=== PATIENT | female | born 1970 | race Caucasian/White ===

== ENCOUNTER → 2016-06-09 | Outpatient (CLI) | payer OTHER ==
[~2016-06-09] MED LIST: ALBUAER19 INH; CALC-20 PO; FLUT0.0529 NAE; GADAVIST IV PRN; HYDR12.56 PO; MONT1TAB3 PO; MULTTAB58 PO
--- NOTE | 2016-06-09 15:30 | DIAGNOSTIC IMAGING REPORT ---
Brain MRI WITH AND WITHOUT CONTRAST HISTORY: Worsening headaches. Recent head trauma. Headache, speech DISTURBANCE,RECENT INJ,DIZZINESS TECHNIQUE: Multiplanar multisequence MRI of the brain was performed both before and after the intravenous administration of contrast. COMPARISON STUDY: None. FINDINGS: There are no areas of restricted diffusion to suggest acute infarction. The midline structures are intact. There is a 1.4 cm retention cyst within the floor the left maxillary sinus. No fluid levels within the paranasal sinuses. Tiny linear focus of enhancement within the left frontal lobe is consistent with a small developmental venous anomaly. This is considered to be a normal variant. The mastoid air cells are clear. The ventricles and sulci are within normal limits for age. There is no mass, hematoma, midline shift. The major vascular flow-voids at the skull base are well maintained. IMPRESSION: No acute intracranial abnormality. Electronically signed by: Ryan Dodd M.D. 06/09/2016 3:29 PM Dictated Date/Time: 06/09/2016 3:21 PM
== END | disposition home or self-care (01) ==
LOC: C.MRI 14:12
PROVIDERS: ATTEND Nurse Practitioner Family
DX: R51 Headache (principal); R47.89 Other speech disturbances; S09.90XA Unspecified injury of head, initial encounter; R42 Dizziness and giddiness; X58.XXXA Exposure to other specified factors, initial encounter

== ENCOUNTER → 2016-08-16 | Outpatient (CLI) | payer OTHER ==
[~2016-08-16] MED LIST changes: -GADAVIST IV PRN
== END | disposition home or self-care (01) ==
LOC: C.PAPS 14:03
PROVIDERS: ATTEND Obstetrics & Gynecology
DX: Z01.419 Encounter for gynecological examination (general) (routine) without abnormal findings (principal)

== ENCOUNTER → 2016-12-30 | Outpatient (CLI) | payer OTHER ==
[2016-12-30 10:14] LABS: CHOLESTEROL/HDL RATIO 2.9
== END | disposition home or self-care (01) ==
LOC: C.LAB1850 08:35
PROVIDERS: ATTEND Obstetrics & Gynecology
DX: Z00.00 Encounter for general adult medical examination without abnormal findings (principal)

== ENCOUNTER → 2017-04-18 | Outpatient (CLI) | payer OTHER ==
--- NOTE | 2017-04-19 07:36 | MAMMOGRAPHY REPORT ---
BILATERAL DIGITAL SCREENING MAMMOGRAM TOMOSYNTHESIS WITH CAD: 04/18/2017 CLINICAL HISTORY: Routine screening. Patient has no complaints. TECHNIQUE: Breast tomosynthesis in addition to standard 2D mammography was performed. Current study was also evaluated with a Computer Aided Detection (CAD) system. COMPARISON: Comparison is made to exams dated: 01/27/2015 mammogram, 11/12/2013 mammogram, 10/18/2012 jesse mogram, 10/16/2012 mammogram, 08/04/2011 mammogram, and 07/08/2010 mammogram - [facility] er. BREAST COMPOSITION: The tissue of both breasts is heterogeneously dense, which may obscure small mas ses. FINDINGS: The parenchymal pattern is unchanged. No developing mass, architectural distortion or clus ter of suspicious microcalcifications is seen in either breast. IMPRESSION: ACR BI-RADS CATEGORY 2: BENIGN There is no mammographic evidence of malignancy. A 1 year screening mammogram is recommended. The pa tient will receive written notification of the results. Approximately 10% of breast cancers are not detected with mammography. A negative mammographic report should not delay biopsy if a clinically suggestive mass is present. Tressa Carter M.D. ay/:04/18/2017 16:45:49 Peripatologist: Blessing IBARRA(R)(Masood), [facility] letter sent: Normal 1/2 BI-RADS Code: ACR BI-RADS Category 2: Benign
== END | disposition home or self-care (01) ==
LOC: C.MAMM 11:07
PROVIDERS: ATTEND Obstetrics & Gynecology
DX: Z12.31 Encounter for screening mammogram for malignant neoplasm of breast (principal)

== ENCOUNTER → 2017-08-10 | Outpatient (CLI) | payer OTHER ==
--- NOTE | 2017-08-10 09:42 | DIAGNOSTIC IMAGING REPORT ---
ULTRASOUND SOFT TISSUES NECK CLINICAL HISTORY: Left-sided neck pain and swelling. COMPARISON STUDY: No priors. FINDINGS: Real-time, grayscale, and color flow sonography of the soft tissues of the neck is performed at the indicated site of interest. No mass or fluid collection is identified. There are scattered benign-appearing bilateral cervical lymph nodes which maintain normal fatty broderick. The largest is seen in the left submandibular region and measures 7 mm in short axis. No pathologically enlarged or morphologically abnormal nodes are identified. IMPRESSION: 1. No acute abnormality is identified. 2. There are scattered benign-appearing cervical lymph nodes incidentally noted. Electronically signed by: Arnulfo Maldonado M.D. 08/10/2017 9:41 AM Dictated Date/Time: 08/10/2017 9:39 AM
== END | disposition home or self-care (01) ==
LOC: C.ULTR 09:08
PROVIDERS: ATTEND Family Medicine
DX: M54.2 Cervicalgia (principal)

== ENCOUNTER → 2017-12-29 | Outpatient (CLI) | payer OTHER | END | disposition home or self-care (01) | LOC: C.LAB1850 08:46 | PROVIDERS: ATTEND Obstetrics & Gynecology | DX: Z00.00 Encounter for general adult medical examination without abnormal findings (principal) ==

== ENCOUNTER 2024-12-25 12:09 | Observation (INO) ==
[2024-12-25 12:59] LABS: Appearance Urine Clear (Clear); Glucose Urine UA Negative (Negative)
[2024-12-25 13:02] LABS: Hematocrit (blood only) 42.9 % (37.0-47.0); Hemoglobin 14.6 g/dl (12.0-16.0); Immature Granulocytes # (auto) 0.02 K/uL (0.01-0.20); Immature Granulocytes % (auto) 0.2 %; Mean Corpuscular Hemoglobin 31.1 pg (25.0-34.0); Mean Corpuscular Volume 91.3 fL (80.0-100.0); Platelet Count 262 K/uL (130-400); RDW Standard Deviation 43.8 fL (36.4-46.3); Red Blood Count 4.70 M/uL (4.20-5.40); White Blood Count 9.18 K/ul (4.8-10.8)
--- NOTE | 2024-12-25 13:17 | XRay Report ---
XR chest 1V portable CLINICAL HISTORY: chest pain COMPARISON STUDY: 12/19/2014 FINDINGS: Heart size and pulmonary vasculature are normal. No consolidation or pleural effusion. No p neumothorax. IMPRESSION: No acute findings. ACT 112: Negative or not required by law. Electronically signed by: Patrick Persaud M.D. 12/25/2024 1:16 PM
[2024-12-25 13:21] LABS: Alanine Aminotransferase 16 U/L (7-52); Albumin Globulin Ratio 1.8 (0.9-2); Alkaline Phosphatase 83 U/L (34-104); Anion Gap 6 (3-11); Bilirubin,Total 0.4 mg/dl (0.2-1.0); Blood Urea Nitrogen 13 mg/dl (6-23); Calcium 9.5 mg/dl (8.6-10.3); Carbon Dioxide 31 mmol/L (21-32); Chloride 106 mmol/L (98-107); Globulin 2.5 gm/dl (2.5-4.0); Glucose 106 mg/dl (70-99(Fasting)); Potassium 3.9 mmol/L (3.5-5.1); Sodium 143 mmol/L (136-145); Total Protein 7.1 gm/dl (6.0-8.3)
--- NOTE | 2024-12-25 13:39 | Emergency Department Note ---
Impression & Plan Blurred vision, bilateral, Hypertension, Aphasia, Memory change ED Provider Note CHIEF COMPLAINT: Visual changes and strokelike symptoms HISTORY OF PRESENTING ILLNESS: Patient is a 54-year-old female presents to the emergency department today for complaints of an episode of blurry vision with some minor memory changes. 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 Her coworkers grew concerned and called EMS and the patient was brought in by ambulance. Since that episode the patient reports her symptoms have resolved. She reports a similar episode about a year ago and the outcome was her blood pressure was elevated and she needed medication adjustment. She denies any falls or injuries to the head. She denies any syncope lightheadedness or dizziness. She does not take any blood thinners. She denies chest pain, sob, breathing difficulties, abdominal pain, headache, fevers/chills, blood in stool or urine, any recent illness, or any recent travel. REVIEW OF SYSTEMS: See HPI for pertinent positives and pertinent negatives. ALLERGIES: See below MEDICATIONS: See below PAST MEDICAL HISTORY: See below PHYSICAL EXAM: VITALS: Vitals are noted on the nurse's note and reviewed by myself. GENERAL: No acute distress, non-diaphoretic. SKIN: Capillary reflex less than 2 seconds. HEAD: No scalp tenderness. No step-offs felt. EYES: Pupils equal round and reactive to light and accommodation. Conjunctivae without injection, sclerae without icterus. Extraocular movements intact without pain. No nystagmus. FACE: No facial bone tenderness. Full range of motion of the jaw without tenderness. No facial droop. MOUTH: Mucous membranes moist. Uvula midline. Airway patent. Tongue does not deviate. NECK: Supple without nuchal rigidity. Cervical spine is nontender. Full range of motion of the neck without tenderness and normal strength. HEART: Regular rate and rhythm without murmurs gallops or rubs. LUNGS: Clear to auscultation bilaterally without wheezes, rales or rhonchi. No retractions or accessory muscle use. No chest wall tenderness. ABDOMEN: Positive bowel sounds x 4. Normal tympanic percussion. Soft, nontender to palpation. No masses or hepatosplenomegaly. No guarding or rebound tenderness. No focal RLQ or LLQ tenderness. MUSCULOSKELETAL: No tenderness of the thoracic or lumbar spine or paraspinal muscles. Strength 5/5 and equal bilaterally in the upper and lower extremities. Peripheral pulses 2+ and equal in the bilateral upper and lower extremities. NEURO: NIH-0 patient was alert and oriented to person place and time. Normal mental status exam. Normal sensation to light and sharp touch. No focal neurological deficits. DIFFERENTIAL DIAGNOSIS: The differential diagnosis includes acute intracranial bleed, meningitis, encephalitis, mass or mass effect, sinusitis, infection, tumor, headache, temporal arteritis and carbon monoxide exposure, and migraine. ED COURSE AND MEDICAL DECISION MAKING: HISTORY FROM INDEPENDENT HISTORIAN: History was provided by the patient. MONITOR: Continuous laboratory monitor: Order was placed for continuous laboratory monitor. Patient was placed on the laboratory monitor and continuous pulse ox. Patient was noted to be in normal sinus rhythm at an initial rate of 78 bpm per my interpretation. EKG: EKG was interpreted by myself as sinus bradycardia with left atrial enlargement and a septal infarct age undetermined at a rate of 55 bpm. INTERPRETATION OF LABS: I interpreted the labs with full lab results as below in the lab section of this note. Laboratory results pertinent to the emergent complaint are discussed in the MDM section below. The patient was advised to follow up with their PCP and/or specialist(s) for further outpatient monitoring and management of any abnormal results. INTERPRETATION OF IMAGING: Imaging studies were interpreted by myself and read by radiology as per the imaging section of this note. The patient was advised to follow up with their PCP and/or specialist(s) for further outpatient management of any non-emergent abnormal findings. CHRONIC MEDICAL/SOCIAL CONDITIONS AFFECTING CARE: No social concerns were identified as barriers to patients care. ESCALATION OF CARE CONSIDERED: I considered admission on this patient due to TIA symptoms and fluctuating blood pressure with hypertension. CONSULTATIONS: I had a meaningful discussion about this patient with Dr. Ramey who agrees with my assessment and the treatment plan. SUMMARY: I examined the patient for complaints of TIA symptoms. A physical exam and history were performed. Nursing notes, EMR, and medication list were personally reviewed. CBC showed no leukocytosis, anemia, thrombocytopenia. CMP showed no emergent findings. Troponin was less than 2.3. EKG did show sinus bradycardia with left atrial enlargement and a septal infarct age undetermined at a rate of 55 bpm. Chest x-ray showed no acute findings. CT of the head and neck showed no acute findings. There is left vertebral artery that is very diminutive noted. The patient was given 324 mg of aspirin. I was made aware by nursing that the patient was having another episode of blurry vision. On arrival to the patient reported the symptoms have already resolved. Her blood pressure was noted to be slightly elevated at that time and that has also resolved. I did speak with Dr. Talley who accepts the patient for admission for further TIA workup. DIAGNOSIS: TIA symptoms, hypertension TREATMENT PLAN/DISCHARGE INSTRUCTIONS: Admit to hospitalist services. Past Med/Surg History Problem List (Updated 12/25/24 @ 15:35 by HILARIO Brown) Memory change (Acute) Aphasia (Acute) Hypertension (Acute) Blurred vision, bilateral (Acute) Postmenopausal bleeding Asthma (Acute) Hypertension (Acute) Asthma exacerbation (Acute) Chest pain (Acute) Surgical History History of wisdom tooth extraction History of varicose vein ligation History of tonsillectomy and adenoidectomy History of cryosurgery Family History Mother Alzheimer disease Father Stroke Hypertension Myocardial infarction Social History Smoking Status: Never smoker Do You Dip or Chew Tobacco: No; Preferred Language: Yakut Feels Safe at Home: Yes Allergies Allergies Allergy/AdvReac Type Severity Reaction Status Date / Time Penicillins Allergy Intermediate itchy rash Verified 02/20/24 09:00 Home Meds Home Medications Medication Instructions Recorded Confirmed albuterol sulfate 90 mcg/actuation 2 puff inhalation QID PRN sob 02/24/20 12/25/24 aerosol inhaler fluticasone propionate 50 0 spray intranasal DIRECTED 02/24/20 12/25/24 mcg/actuation nasal spray,suspension hydrochlorothiazide 12.5 mg tablet 0 mg PO DAILY 02/24/20 12/25/24 montelukast 10 mg tablet 10 mg PO DAILY 02/24/20 12/25/24 calcium carbonate 0 mg PO DAILY 12/25/24 12/25/24 olmesartan 5 mg tablet 5 mg PO DAILY 12/25/24 12/25/24 Results & Data (ED) Vital Signs Vital Signs - 24 hr 12/25/24 12:14 12/25/24 12:48 12/25/24 14:13 Temperature 36.4 C L Temperature Source Oral Pulse Rate 68 78 Pulse Rate [Apical] 87 Respiratory Rate 17 18 Blood Pressure 179/93 H Blood Pressure [Right Arm] 143/83 H Blood Pressure Mean 121 Blood Pressure Mean [Right Arm] 103 Pulse Oximetry 99 98 Oxygen Delivery Method Room Air Sepsis Recent Fever Within 48 Hours No Sepsis New/Unexplained Change in Mental Status N/A Sepsis Action Taken by Nursing No Action Required 12/25/24 14:26 12/25/24 15:00 Temperature Temperature Source Pulse Rate Pulse Rate [Apical] 96 H 88 Respiratory Rate 18 Blood Pressure Blood Pressure [Right Arm] 179/91 H 153/82 H Blood Pressure Mean Blood Pressure Mean [Right Arm] 120 105 Pulse Oximetry 98 Oxygen Delivery Method Sepsis Recent Fever Within 48 Hours Sepsis New/Unexplained Change in Mental Status Sepsis Action Taken by Nursing Laboratory Data 12/25/24 12:44 12/25/24 12:44 Lab Results 12/25/24 12/25/24 12/25/24 Range/Units 12:20 12:39 12:44 WBC 9.18 (4.8-10.8) K/ul RBC 4.70 (4.20-5.40) M/uL Hgb 14.6 (12.0-16.0) g/dl Hct 42.9 (37.0-47.0) % MCV 91.3 (80.0-100.0) fL MCH 31.1 (25.0-34.0) pg MCHC 34.0 (32.0-36.0) g/dL RDW Std Deviation 43.8 (36.4-46.3) fL RDW Coeff of Rod 13.0 (11.5-14.5) % Plt Count 262 (130-400) K/uL MPV 10.0 (9.4-12.4) fL Immature Gran % (Auto) 0.2 % Neut % (Auto) 54.8 % Lymph % (Auto) 34.4 % Kenton % (Auto) 7.7 % Eos % (Auto) 1.9 % Baso % (Auto) 1.0 % Neut # (Auto) 5.03 (1.40-6.50) K/uL Lymph # (Auto) 3.16 (1.20-3.40) K/uL Kenton # (Auto) 0.71 H (0.11-0.59) K/uL Eos # (Auto) 0.17 (0.00-0.50) K/uL Baso # (Auto) 0.09 (0.00-0.20) K/uL Immature Gran # (Auto) 0.02 (0.01-0.20) K/uL Sodium 143 (136-145) mmol/L Potassium 3.9 (3.5-5.1) mmol/L Chloride 106 (98-107) mmol/L Carbon Dioxide 31 (21-32) mmol/L Anion Gap 6 (3-11) BUN 13 (6-23) mg/dl Creatinine 0.78 (0.6-1.2) mg/dl Est Cr Clr Drug Dosing Not Reportable eGFR 89.09 BUN/Creatinine Ratio 16.7 (10-20) Glucose 106 H (70-99(Fasting)) mg/dl POC Glucose 94 (70-99) mg/dl Calcium 9.5 (8.6-10.3) mg/dl Total Bilirubin 0.4 (0.2-1.0) mg/dl AST 17 (13-39) U/L ALT 16 (7-52) U/L Alkaline Phosphatase 83 (34-104) U/L Troponin I High Sens < 2.3 (0-14) pg/ml Total Protein 7.1 (6.0-8.3) gm/dl Albumin 4.6 (3.4-5.0) gm/dl Globulin 2.5 (2.5-4.0) gm/dl Albumin/Globulin Ratio 1.8 (0.9-2) Urine Color Yellow Urine Appearance Clear (Clear) Urine pH 7.5 (4.5-7.5) Ur Specific Sims 1.010 (1.000-1.030) Urine Protein Negative (Negative) Urine Glucose (UA) Negative (Negative) Urine Ketones Negative (Negative) Urine Blood Negative (Negative) Urine Nitrite Negative (Negative) Urine Bilirubin Negative (Negative) Urine Urobilinogen Negative (Negative) Ur Leukocyte Esterase Negative (Negative) Urine Comment Administered Medications Discontinued Medications Aspirin (Aspirin Chew 324 Mg) 324 mg PO NOW STA Stop: 12/25/24 14:59 Last Admin: 12/25/24 15:03 Dose: 324 mg Documented By: LCD Ioversol (Optiray 320 125ml) 118 ml IV ONCE ONE Stop: 12/25/24 14:09 Last Admin: 12/25/24 14:09 Dose: 118 ml Documented By: [facility] [employer] Data Radiologist's Impression: Chest X-Ray 12/25/24 12:46 XR chest 1V portable CLINICAL HISTORY: chest pain COMPARISON STUDY: 12/19/2014 FINDINGS: Heart size and pulmonary vasculature are normal. No consolidation or pleural effusion. No pneumothorax. IMPRESSION: No acute findings. ACT 112: Negative or not required by law. Electronically signed by: Patrick Persaud M.D. 12/25/2024 1:16 PM Head CTA 12/25/24 12:46 CT angio head wo/w CLINICAL HISTORY: TIA s/s COMPARISON STUDY: 05/23/2024 FINDINGS: Noncontrast head CT: No acute cranial hemorrhage seen. No mass effect, midline shift, or hydrocephalus. No skull fracture seen. CTA: The right vertebral artery is dominant and the left vertebral artery is very diminutive beyond PICA, anatomic variant. Distal internal carotid arteries are widely patent. Basilar artery is mildly diminutive but patent. Anterior, middle, and posterior cerebral arteries are patent bilaterally. 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 No intracranial aneurysm seen. Cerebral venous sinuses opacify normally. There is mild mucosal thickening at the right maxillary sinus. Otherwise the visualized paranasal sinuses are clear. IMPRESSION: 1. No acute findings. 2. No significant arterial narrowing or occlusion seen at the brain. ACT 112: Negative or not required by law. Electronically signed by: Patrick Persaud M.D. 12/25/2024 2:20 PM Neck CTA 12/25/24 12:46 CT angio neck with con CLINICAL HISTORY: 54 years-old Female with TIA s/s. Acute stroke like symptoms with TIA COMPARISON STUDY: CTA neck of same day, Brain MR 05/23/2024, thyroid ultrasound 02/13/2024. TECHNIQUE: Following the IV administration of 118 mL of Optiray, CT angiogram of the neck was performed from the aortic arch to the skull base. Images are reviewed in the axial, sagittal, and coronal planes. 3-D MIPS images are created and assessed. IV contrast was administered without complication. All measurements were calculated based on NASCET criteria. A dose lowering technique was utilized adhering to the principles of ALARA. FINDINGS: Three-vessel morphology of the thoracic aortic arch. Patent common and internal carotid arteries. Dominant right vertebral artery. There is a mild stenosis noted within the diminutive left vertebral artery. No aneurysm, dissection, high-grade stenosis or arterial occlusion. Lung apices appear clear. Thyroid nodules measure up to 1.2 cm on the right, similar to prior. Degenerative changes of the cervical spine. IMPRESSION: 1. Unremarkable CTA of the neck. 2. Multinodular thyroid redemonstrated. ACT 112: Negative or not required by law. The above report was generated using voice recognition software. It may contain grammatical, syntax or spelling errors. Electronically signed by: Jose Juan Ellison M.D. 12/25/2024 2:36 PM Discharge Plan Visit Data Chief Complaint: TIA Symptoms Stated Complaint: HYPERTENSION, DIZZY ED Provider: Aung Ramey ED Midlevel Provider: Nisha Edge Discharge Problem: Blurred vision, bilateral, Hypertension, Aphasia, Memory change Patient Disposition: Admitted As Inpatient Condition: Good Discharge Instructions Interventions: ED Discharge Assessment Last Done: 12/25/24 15:30 Discharge Problem: Hypertension Qualifiers: Hypertension type: unspecified Qualified Code(s): I10 - Essential (primary) hypertension
[2024-12-25] MEDS: OPTIRAY 320 125ml IV ONE (14:09)
--- NOTE | 2024-12-25 14:21 | CT Scan Report ---
CT angio head wo/w CLINICAL HISTORY: TIA s/s COMPARISON STUDY: 05/23/2024 FINDINGS: Noncontrast head CT: No acute cranial hemorrhage seen. No mass effect, midline shift, or hydrocephalu s. No skull fracture seen. CTA: The right vertebral artery is dominant and the left vertebral artery is very diminutive beyond P ICA, anatomic variant. Distal internal carotid arteries are widely patent. Basilar artery is mildly d iminutive but patent. Anterior, middle, and posterior cerebral arteries are patent bilaterally. 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 No intracranial aneurysm seen. Cerebral venous sinuses opacify norm ally. There is mild mucosal thickening at the right maxillary sinus. Otherwise the visualized paranas al sinuses are clear. IMPRESSION: 1. No acute findings. 2. No significant arterial narrowing or occlusion seen at the brain. ACT 112: Negative or not required by law. Electronically signed by: Patrick Persaud M.D. 12/25/2024 2:20 PM
--- NOTE | 2024-12-25 14:37 | CT Scan Report ---
CT angio neck with con CLINICAL HISTORY: 54 years-old Female with TIA s/s. Acute stroke like symptoms with TIA COMPARISON STUDY: CTA neck of same day, Brain MR 05/23/2024, thyroid ultrasound 02/13/2024. TECHNIQUE: Following the IV administration of 118 mL of Optiray, CT angiogram of the neck was perform ed from the aortic arch to the skull base. Images are reviewed in the axial, sagittal, and coronal pl anes. 3-D MIPS images are created and assessed. IV contrast was administered without complication. Al l measurements were calculated based on NASCET criteria. A dose lowering technique was utilized adhe ring to the principles of ALARA. FINDINGS: Three-vessel morphology of the thoracic aortic arch. Patent common and internal carotid arteries. Dom inant right vertebral artery. There is a mild stenosis noted within the diminutive left vertebral art erich. No aneurysm, dissection, high-grade stenosis or arterial occlusion. Lung apices appear clear. Thyroid nodules measure up to 1.2 cm on the right, similar to prior. Degene rative changes of the cervical spine. IMPRESSION: 1. Unremarkable CTA of the neck. 2. Multinodular thyroid redemonstrated. ACT 112: Negative or not required by law. The above report was generated using voice recognition software. It may contain grammatical, syntax o r spelling errors. Electronically signed by: Jose Juan Ellison M.D. 12/25/2024 2:36 PM
[2024-12-25] MEDS: ASPIRIN CHEW 324 MG PO STA (15:03)
--- NOTE | 2024-12-25 15:42 | Electrocardiogram Report ---
Test Reason : Blood Pressure : */* mmHG Vent. Rate : 55 BPM Atrial Rate : 55 BPM P-R Int : 154 ms QRS Dur : 80 ms QT Int : 422 ms P-R-T Axes : 61 14 59 degrees QTcB Int : 403 ms Sinus bradycardia Possible Left atrial enlargement Septal infarct , age undetermined Abnormal ECG When compared with ECG of 19-Dec-2014 09:31, Septal infarct is now Present Confirmed by Perry Brown ([id number]) on 12/25/2024 3:42:13 PM Referred By: REFERRED SELF Confirmed By: Perry Brown
[2024-12-25] MEDS ORDERED: ONDANSETRON INJ 2 MG/ML 2 ML VIAL IV PRN (15:57)
[2024-12-25] MEDS ORDERED: ALBUTEROL HFA 8 GM INHALER INH PRN (15:57)
[2024-12-25] MEDS ORDERED: ACETAMINOPHEN 325 MG TAB PO PRN (15:57)
--- NOTE | 2024-12-25 16:35 | History & Physical Report ---
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 Patient is evaluated for TIA with completion of workup after admission #TIA, certainly with symptoms concern for this being a risk of stroke. The patient will have MRI of her brain. She will do echocardiogram to look for paradoxical embolus. She will have a Lyme titer. B12. And a TSH. Will monitor for arrhythmia and telemetry Her recent fasting lipids were performed on the they are in the above note. Reasonable but given symptoms she may benefit from considering a formal statin at this time. #Hypertension typically controlled with olmesartan this will be continued #Asthma this has been quiescent we will continue her typical medications including Singulair with as needed albuterol and fluticasone nasal spray DVT prevention is early ambulation less of a prolonged stay they will consider chemoprophylaxis. Patient is a full code Admission and Anticipated Discharge Date Admission Date: December 25, 2024 History of Present Illness Chief Complaint: 54-year-old female arrives via EMS from work. 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 She has complaints of sudden onset of blurry vision on her peripheral vision and difficulty remembering who her coworkers were. There was a description of dysphagia or aphasia however the patient did not endorse that when eyeing interviewed her. Patient did not eat breakfast her BSG on pres entation was 94 she does not have a history of taking medications to treat glucose abnormalities. She has a history of hypertension on home losartan and some asthma taking inhaled medications. She takes no unusual [id number] medications and is not eating breakfast is not unusual for her. 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 Patient is accompanied at the bedside. But no other new symptoms in the last few days to months Primary Care Provider: Yodit Rosenberg DO Allergies Allergy/AdvReac Type Severity Reaction Status Date / Time Penicillins Allergy Intermediate itchy rash Verified 02/20/24 09:00 Home Medications Medication Instructions Recorded Confirmed Type albuterol sulfate 90 mcg/actuation 2 puff inhalation QID PRN sob 02/24/20 12/25/24 History aerosol inhaler fluticasone propionate 50 0 spray intranasal DIRECTED 02/24/20 12/25/24 History mcg/actuation nasal spray,suspension hydrochlorothiazide 12.5 mg tablet 0 mg PO DAILY 02/24/20 12/25/24 History montelukast 10 mg tablet 10 mg PO DAILY 02/24/20 12/25/24 History calcium carbonate 0 mg PO DAILY 12/25/24 12/25/24 History olmesartan 5 mg tablet 5 mg PO DAILY 12/25/24 12/25/24 History Past Med/Surg History Problem List (Updated 12/25/24 @ 16:31 by Agapito Alexandra MD) TIA (transient ischemic attack) Memory change (Acute) Aphasia (Acute) Hypertension (Acute) Blurred vision, bilateral (Acute) Postmenopausal bleeding Asthma (Acute) Hypertension (Acute) Asthma exacerbation (Acute) Chest pain (Acute) Surgical History History of wisdom tooth extraction History of varicose vein ligation History of tonsillectomy and adenoidectomy History of cryosurgery Family History Mother Alzheimer disease Father Stroke Hypertension Myocardial infarction Social History Smoking Status: Never smoker Do You Dip or Chew Tobacco: No; Preferred Language: Stateless Feels Safe at Home: Yes Review of Systems Review of Systems: Mild distress and fatigue, patient is very anxious about the situation. no headache, peripheral visual changes almost sounding presyncopal in nature since resolved no speech or swallowing issues, patient denies these however was having word finding issues no chest pain, pressure or palpitations no shortness of breath, cough or wheezes no abdominal pain, nausea or vomiting, diarrhea or constipation no dysuria, hematuria or frequency no focal joint pain or swelling no back pain, CVA tenderness or radicular pain no bruising, bleeding or rashes no focal signs of weakness or numbness or altered sensation no complaints of anxiety or depression.. Physical Exam Physical Exam: The patient appeared well nourished and normally developed. Vital signs as documented. Head exam is normocephalic atraumatic Neck is without JVD, thyromegaly, or carotid bruits. Lungs are clear to auscultation, no focal loss of breath sounds Cardiac exam, Rhythm is regular.. No murmurs, rubs or gallops. Abdominal exam reveals normal bowel sounds, soft non tender, no masses Extremities are nonedematous and both pedal pulses are present Neurologic exam is alert and oriented, no focal loss of strength or sensation Skin is without bruises or rashes Psychologically is without concerns for anxiety or depression.. Results & Data Results & Data Vital Signs (Past 12 Hours) Vital Signs Temp Pulse Pulse Resp BP BP Pulse Ox 12/25/24 15:00 88 18 153/82 H 98 12/25/24 14:26 96 H 179/91 H 12/25/24 14:13 87 18 143/83 H 98 12/25/24 12:48 78 12/25/24 12:14 97.5 F L 68 17 179/93 H 99 O2 Del Method 12/25/24 15:00 12/25/24 14:26 12/25/24 14:13 12/25/24 12:48 12/25/24 12:14 Room Air Laboratory Results CBC reviewed chemistry reviewed lipid panel from 12/24/2024 with total cholesterol 214 LDL 133 HDL 62 Discussed case with ER provider EKG shows show sinus bradycardia Diagnostic Findings Reviewed CT head CT brain angiogram and CT neck angiogram Code Status & VTE Plan VTE Prophylaxis Plan VTE Prophylaxis will be ordered: Yes PG Care Time/CCT Total # of Minutes Spent Total Time Spent with Patient: Total time spent is greater than 50% in coordination of care (as documented) at patient's floor/unit and/or counseling patient: Coding Level of Care Code 23179 INT INP/OBS CARE 3/75MIN Diagnoses TIA (transient ischemic attack) G45.9 Hypertension I10 Asthma J45.909
--- NOTE | 2024-12-25 17:08 | Magnetic Resonance Report ---
Clinical History: Headache and visual disturbance Technique: Multiple T1 and T2-weighted magnetic resonance images were obtained of the brain without gadolinium contrast Findings: There is no sign of acute or old infarction with normal-appearing diffusion weighted images. No definite focus of demyelination is seen. No definite mass lesion is seen on this noncontrast study. There is no intracranial hemorrhage or other fluid collection. No midline shift or other form of herniation is seen. There is no hydrocephalus. Normal flow-voids are seen within the arteries of the wilmiy-yr-Swwobj. The orbits and paranasal sinuses appear normal. The mastoid air cells appear clear. Impression: Unremarkable noncontrast MRI of the brain Electronically signed by Inocencio Jameson 12-25-2024 5:07 PM
[2024-12-25] MEDS: LOSARTAN POTASSIUM 25 MG TAB PO STA (23:39)
[2024-12-26 03:22] VITALS: O2SAT 98
[2024-12-26 05:05] LABS: Alanine Aminotransferase 15.0 U/L (7-52); Albumin Globulin Ratio 1.9 (0.9-2); Alkaline Phosphatase 72.0 U/L (34-104); Anion Gap 2.0 (3-11); Bilirubin,Total 0.4 mg/dl (0.2-1.0); Blood Urea Nitrogen 13.0 mg/dl (6-23); Calcium 9.1 mg/dl (8.6-10.3); Carbon Dioxide 28.0 mmol/L (21-32); Chloride 110.0 mmol/L (98-107); Creatinine Clr Calc Pharmacy 68.8 ml/min; Globulin 2.2 gm/dl (2.5-4.0); Glucose 101.0 mg/dl (70-99(Fasting)); Potassium 4.1 mmol/L (3.5-5.1); Sodium 140.0 mmol/L (136-145); Total Protein 6.3 gm/dl (6.0-8.3)
[2024-12-26 05:18] LABS: Thyroid Stimulating Hormone 3.44 uIu/ml (0.300-4.500)
[2024-12-26 07:51] LABS: Hemoglobin A1C 5.8 % (4.5-5.6)
[2024-12-26] MEDS: FLUTICASONE PROPIONATE NA SPR 16 GM BTL SCH (08:21)
[2024-12-26] MEDS: ASPIRIN 81 MG ECTAB PO SCH (08:21)
[2024-12-26] MEDS: MONTELUKAST SODIUM 10 MG TABLET PO SCH (08:22)
[2024-12-26] MEDS ORDERED: LOSARTAN POTASSIUM 25 MG TAB PO SCH ×2 (09:00→21:00)
[2024-12-26] MEDS ORDERED: hydroCHLOROthiazide 25 MG TAB PO SCH (09:00)
[2024-12-26 09:44] VITALS: RESP 15
[2024-12-26 09:46] VITALS: TEMP 98.6
--- NOTE | 2024-12-26 12:21 | XCELERA ---
[id number]
[2024-12-26 13:19] VITALS: BP 141/87; PULSE 89
--- NOTE | 2024-12-26 19:13 | Discharge Summary ---
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 Patient is evaluated for TIA with completion of workup after admission #TIA, stroke is been ruled out TIA versus atypical migraine The patient will have MRI of her brain. She will do echocardiogram to look for paradoxical embolus. Negative Lyme titer and normal TSH, normal B12. Favorable lipid panel on the Echocardiogram negative for PFO we recommended aspirin today and neurology follow-up. #Hypertension typically controlled with olmesartan this will be continued #Asthma this has been quiescent we will continue her typical medications including Singulair with as needed albuterol and fluticasone nasal spray Patient understands that we do not find a direct diagnostic explanation for her symptoms but she is reassured of the things we did rule out she will follow-up with family physician and neurology Notes For Next Care Provider Discussion of whether to continue aspirin or not possible neurology referral Discharge Exam Pleasant female no distress all symptoms resolved Discharge Plan Discharge Items Patient Disposition: Home - Self-Care Reason For Visit: TIA EVAL Discharge Diagnosis: transient neurologic deficit resolved Condition on Discharge: Good Activity: Resume your previous activity Non-emergency contact: Primary Care Provider Call non-emergency contact if: your symptoms worsen Follow-up/Referrals: Yodit Rosenberg DO [Primary Care Provider] - 01/06/25 1:25 pm (Hospital follow up on January 06 at 1:25 pm.) Diet: Regular Addtl Attending Provider Instructions: please follow up with your family doctor next week, it would be beneficial to follow up with Dr Ballesteros at referral of your primary care. 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 Lyme was negative, ECHO shows a strong, normal heart without and patent foramen Pending Studies at Discharge: No Stand-Alone Forms: My [employer], Smoking Cessation Medications and DC Order Prescriptions: Continued fluticasone propionate 50 mcg/actuation spray,suspension 0 spray intranasal DIRECTED Patient Comments: 12/25- otc/no fill history unable to verify albuterol sulfate 90 mcg/actuation HFA aerosol inhaler 2 puff inhalation QID PRN (Reason: sob) Patient Comments: 12/25-last filled 03/18/24 20 day supply montelukast 10 mg tablet 10 mg PO DAILY olmesartan 5 mg tablet 5 mg PO DAILY calcium carbonate 0 mg PO DAILY Patient Comments: 12/25- otc unable to verify Discontinued hydrochlorothiazide 12.5 mg tablet 0 mg PO DAILY Patient Comments: 12/25- no fill history unable to verify Discharge Orders: Discharge Order (Routine); Ordered 12/26/24 Ordered By: Agapito Alexandra Admission Data Admit Date/Time: 12/25/24 15:02 Attending Provider: Agapito Alexandra Admit Provider: Agapito Alexandra Primary Care Provider: Yodit Rosenberg Other Interventions: Discharge Summary Assessment (RN) Last Done: 12/26/24 13:15 Hospital Stay Data Diagnostic Imagining Performed 12/25/24 12:46 CTA head wo/w [CT angio head wo/w] Stat CTA neck with con [CT angio neck with con] Stat 12/25/24 15:19 MRI Brain [MR brain wo con] Stat Pending Results Patient Have Any Pending Studies at Discharge: No Discharge Instructions Given to Patient (Per Discharging Provider) please follow up with your family doctor next week, it would be beneficial to follow up with Dr Ballesteros at referral of your primary care. 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 Lyme was negative, ECHO shows a strong, normal heart without and patent foramen Total Time Total Time Spent Total Time Spent (In Minutes): It required greater than 30 minutes to prepare this patient for discharge. Coding Level of Care Code 23777 INP/OBS DISCH >30 MIN Diagnoses TIA (transient ischemic attack) G45.9 Hypertension I10 Asthma J45.909
== END 2024-12-26 13:59 | disposition home or self-care (01) ==
LOC: ED 12:09 → 1E 12:09